=== PATIENT | female | born 1960 | race Caucasian/White ===

== ENCOUNTER 2020-07-31 16:07 | Outpatient (CLI) | payer BC | END 2020-07-31 16:08 | disposition home or self-care (01) | LOC: CSHULT 16:07 | PROVIDERS: ATTEND Urology | DX: N20.0 Calculus of kidney (principal); Z87.442 Personal history of urinary calculi | CPT/HCPCS: 76770 ==

== ENCOUNTER 2020-07-31 16:55 | Emergency (ER) | payer BC ==
[2020-07-31] MEDS ORDERED: Acetaminophen 325 MG TAB ONE (18:34)
[2020-07-31] MEDS ORDERED: Promethazine HCl 25 MG/ML VIAL ONE (18:34)
[2020-07-31 18:56] LABS: #Eosinphils 0.1 10x3/uL (0.0-0.5); #Monocytes 0.5 10x3/uL (0.0-1.1); #Neutrophils 3.7 10x3/uL (1.5-8.4); %Basophils 0.3 % (0.0-2.0); %Monocytes 7.7 % (0.0-10.0); %Neutrophils 58.7 % (40.0-75.0); Mean Corpuscular HGB CONC 33.6 g/dL (32.0-36.0); Mean Corpuscular Hemoglobin 33.2 pg (27.0-33.0); Platelet Count 211 10x3/uL (150-450); RBC Distribution Width 13.4 % (11.5-14.5); Red Blood Cell (RBC) Count 3.91 10x6/uL (3.90-5.03); White Blood Cell (WBC) Count 6.4 10x3/uL (3.5-10.5)
[2020-07-31 19:13] LABS: ALT (SGPT) 10 U/L (8-55); AST (SGOT) 20 U/L (5-34); Albumin 4.3 g/dL (3.4-4.8); Alkaline Phosphatase 84 U/L (40-110); Anion Gap 17 mmol/L (10-20); BUN (Urea Nitrogen) 8 mg/dL (9.8-20.1); Bilirubin, Total 1.1 mg/dL (0.2-1.2); CK (CPK) 27 U/L (29-168); Calc. Creatinine Clearance 0 mL/min (70-130); Calcium 8.9 mg/dL (7.8-10.44); Carbon Dioxide 21 mmol/L (23-31); Chloride 108 mmol/L (98-107); Globulin 2.1 g/dL (2.4-3.5); Glucose 95 mg/dL (80-115); Lipase 37 U/L (8-78); Magnesium 2.1 mg/dL (1.6-2.6); Potassium 3.9 mmol/L (3.5-5.1); Protein, Total 6.4 g/dL (5.8-8.1); Sodium 142 mmol/L (136-145)
== END 2020-07-31 20:47 | disposition home or self-care (01) ==
LOC: CSHERS 16:55
DX: R53.1 Weakness (principal); R51.9 Headache, unspecified; R11.0 Nausea; E03.9 Hypothyroidism, unspecified; I25.10 Atherosclerotic heart disease of native coronary artery without angina pectoris
CPT/HCPCS: 36415; 71045; 76770; 80053; 82550; 83690; 83735; 84484; 85025; 93005; 96365; J2550

== ENCOUNTER 2020-08-16 12:35 | Outpatient (CLI) | payer BC | END 2020-08-16 12:36 | disposition home or self-care (01) | LOC: CSHRAD 12:35 | PROVIDERS: ATTEND Chiropractor | DX: M53.84 Other specified dorsopathies, thoracic region (principal); M54.6 Pain in thoracic spine; M99.18 Subluxation complex (vertebral) of rib cage; M53.86 Other specified dorsopathies, lumbar region; N20.0 Calculus of kidney | CPT/HCPCS: 72072; 74018 ==